=== PATIENT | male | born 2000 | race Two or more races ===

== ENCOUNTER 2018-05-14 15:30 | Emergency (ER) | payer OTHER ==
[2018-05-14 15:45] VITALS: BP 141/97
--- NOTE | 2018-05-14 16:53 | ER Document Report ---
ED General - General Chief Complaint: Leg Pain Stated Complaint: LEG PAIN Time Seen by Provider: 05/14/18 16:42 Mode of Arrival: Ambulatory Information source: Patient - HPI Patient complains to provider of: Right lower extremity redness and swelling Onset: Other - Developed over the past 2-3 days Onset/Duration: Gradual Quality of pain: Throbbing Severity: Moderate Associated symptoms: denies: Chills, Fever Exacerbated by: Denies Relieved by: Denies Similar symptoms previously: No Recently seen / treated by doctor: No Notes: Patient is a 17-year-old male who comes in today with redness and swelling of his right lower leg. States a few days ago it was kind of itchy so he scratched it. Subsequently, a small area of redness developed which he ignored. Over the past 12-24 hours is gotten significantly more red and started to swell a little bit. He has had no fevers or shaking chills. He is not diabetic. - Related Data Allergies/Adverse Reactions: No Known Allergies Allergy (Unverified 05/14/18 15:33) Past Medical History - General Information source: Patient - Social History Smoking Status: Never Smoker Family History: Reviewed & Not Pertinent Review of Systems - Review of Systems Notes: Constitutional: No fevers. No chills. EENT: No eye redness. No eye pain. No ear pain. No sore throat. Cardiovascular: No chest pain. No palpitations. Respiratory: No cough. No shortness of breath. No respiratory distress. Gastrointestinal: No abdominal pain. No nausea, vomiting, or diarrhea. Genitourinary: Atraumatic. No lesions. No pain. No discharge. Musculoskeletal: Redness and swelling of the right lower extremity Skin: No rash or lesions. Lymphatic: No swollen lymph nodes. Neurologic: No headache. No syncope. Psychiatric: No suicidal or homicidal ideation. Physical Exam - Vital signs Vitals: Temp Pulse Resp BP Pulse Ox 99.0 F 98 H 16 141/97 H 99 05/14/18 15:44 05/14/18 15:44 05/14/18 15:44 05/14/18 15:44 05/14/18 15:44 - Notes Notes: General: Well-developed, well-nourished. In no acute distress. Non-toxic appearing. Cardiac: Well-perfused. Regular rate and rhythm. No murmurs, rubs, or gallops. Pulmonary: No respiratory distress. No cyanosis. Bilateral lung fiels are clear to auscultation. Abdominal: Non-distended. Non-rigid. Bowels sounds are present in all four quadrants. No guarding or rebound. HEENT: Head is atraumatic. Conjunctivae not reddened. No tearing. PERRL. EOMI. Orbits atraumatic. No periorbital swelling or erythema. Oropharynx is without erythema, swelling, or exudates. Neck: Supple. No adenopathy. No meningismus. Dermatologic: Warm with good turgor. No rash. Atraumatic. Chest: Atraumatic. No chest wall tenderness to palpation. Musculoskeletal: There is right anterior tib-fib redness and mild soft tissue swelling that does not wrap around circumferentially. The calf is not affected. The calf is nontender to squeeze. The patient has bilateral posterior tibial and dorsalis pedis pulses at 2+ with no discrepancies. Genitourinary: Examination deferred Neurologic: No gross neurologic deficits. Psychiatric: Normal mood. Course - Re-evaluation Re-evalutation: 05/14/18 16:52 Patient appears to have an uncomplicated case of cellulitis of the right lower extremity. We will start him on Keflex and Bactrim and some naproxen. We will have him return here for recheck in a couple of days understanding he will return sooner if he gets worse. - Vital Signs Vital signs: Temp Pulse Resp BP Pulse Ox 99.0 F 98 H 16 141/97 H 99 05/14/18 15:44 05/14/18 15:44 05/14/18 15:44 05/14/18 15:44 05/14/18 15:44 Discharge - Discharge Clinical Impression: Elevated blood pressure reading Cellulitis Qualifiers: Site of cellulitis: extremity Site of cellulitis of extremity: lower extremity Laterality: right Qualified Code(s): L03.115 - Cellulitis of right lower limb Disposition: HOME, SELF-CARE Instructions: Cellulitis ([facility]), High Blood Pressure ([facility]) Prescriptions: Cephalexin Monohydrate [Keflex 500 mg Capsule] 500 mg PO Q6H 10 Days #40 capsule Naproxen 500 mg PO BID 5 Days #10 tablet Sulfamethoxazole/Trimethoprim [Bactrim Ds Tablet] 1 each PO BID 10 Days #20 t ablet Forms: Elevated Blood Pressure
== END 2018-05-14 17:25 | disposition home or self-care (01) ==
LOC: ER 15:30
DX: L03.115 Cellulitis of right lower limb (principal); R03.0 Elevated blood-pressure reading, without diagnosis of hypertension; M79.604 Pain in right leg; M79.89 Other specified soft tissue disorders
CPT/HCPCS: 99283